=== PATIENT | male | born 1985 | race Caucasian/White ===

== ENCOUNTER 2017-03-09 16:56 | Emergency (ER) | payer OTHER ==
[2017-03-09 17:05] VITALS: BP 131/93
--- NOTE | 2017-03-09 17:46 | RADIOLOGY REPORT (SQ) ---
EXAM DESCRIPTION: HAND RIGHT 3 VIEWS COMPLETED DATE/TIME: 03/09/2017 5:32 pm REASON FOR STUDY: pain COMPARISON: None. EXAM PARAMETERS: NUMBER OF VIEWS: Three views. TECHNIQUE: AP, lateral and oblique radiographic images acquired of the right hand. LIMITATIONS: None. FINDINGS: MINERALIZATION: Normal. BONES: No acute fracture or dislocation. No worrisome bone lesions. JOINTS: No effusions. SOFT TISSUES: No soft tissue swelling. No foreign body. OTHER: No other significant finding. IMPRESSION: NEGATIVE STUDY OF THE RIGHT HAND. NO RADIOGRAPHIC EVIDENCE OF ACUTE INJURY. TECHNICAL DOCUMENTATION: JOB ID: [id number] [employer]- All Rights Reserved
--- NOTE | 2017-03-09 18:22 | RADIOLOGY REPORT (SQ) ---
EXAM DESCRIPTION: CHEST PA/LAT COMPLETED DATE/TIME: 03/09/2017 6:11 pm REASON FOR STUDY: right mid lateral chest tenderness COMPARISON: None. NUMBER OF VIEWS: One view. TECHNIQUE: Single frontal radiographic image of the chest acquired. LIMITATIONS: None. FINDINGS: LUNGS AND PLEURA: The lungs are clear and evenly aerated without focal consolidation. No pleural effusion or pneumothorax is demonstrated. MEDIASTINUM AND HILAR STRUCTURES: Normal contours. No masses. HEART AND VASCULAR STRUCTURES: Heart size is normal. Central vasculature appears normal. BONES: No acute findings. HARDWARE: None in the chest. OTHER: No other significant finding. IMPRESSION: No abnormalities are demonstrated in the region of the patient's reported pain (right ri bs 9 through 10). No acute findings. TECHNICAL DOCUMENTATION: JOB ID: [id number] [employer]- All Rights Reserved
--- NOTE | 2017-03-09 18:26 | ER Document Report ---
HPI - HPI Pain Level: 2 Context: 31 yo smoker male c/o persistent swelling and discomfort of his right 3rd ( middle) MCP joint after punching his grill 1 month ago. The pain radiates into right elbowand. This am he woke up with tenderness to right lateral chest wall. No sob, fever, cough. Wanted to make sure he didn't have cancer. Associated Symptoms: None Exacerbated by: Movement Similar symptoms previously: No Recently seen / treated by doctor: No - ROS ROS below otherwise negative: Yes Systems Reviewed and Negative: Yes All other systems reviewed and negative - DERM Skin Color: Normal Past Medical History - General Information source: Patient - Social History Smoking Status: Current Every Day Smoker Frequency of alcohol use: None Drug Abuse: None Lives with: Spouse/Significant other Family History: Malignancy - Medical History Medical History: Negative Renal/ Medical History: Denies: Hx Peritoneal Dialysis Surgical Hx: Negative Vertical Provider Document - CONSTITUTIONAL Agree With Documented VS: Yes Exam Limitations: No Limitations General Appearance: No Apparent Distress - INFECTION CONTROL TRAVEL OUTSIDE OF THE [place] IN LAST 30 DAYS: No - HEENT HEENT: Normocephalic - NECK Neck: Supple - RESPIRATORY Respiratory: Breath Sounds Normal, No Respiratory Distress O2 Sat by Pulse Oximetry: 98 Notes: point tender mid lateral right chest wall between ribs - CARDIOVASCULAR Cardiovascular: Regular Rate, Regular Rhythm - GI/ABDOMEN Gastrointestinal: Abdomen Soft, Abdomen Non-Tender - BACK Back: Normal Inspection - MUSCULOSKELETAL/EXTREMETIES Musculoskeletal/Extremeties: OLIVIA, FROM Notes: larger 3rd right MCP - NEURO Level of Consciousness: Awake, Alert Motor/Sensory: No Motor Deficit, No Sensory Deficit - DERM Integumentary: No Rash Course - Re-evaluation Re-evalutation: 03/09/17 18:22 5 the patient to try to quit smoking since he smokes a pack and a half per day since age 19. Hand x-ray is negative, chest x-ray is negative, will treat with antiinflammatory medication. Also gave him a referral to orthopedics for persistent hand pain 03/09/17 18:23 03/09/17 18:26 - Vital Signs Vital signs: Temp Pulse Resp BP Pulse Ox 98.5 F 98 16 131/93 H 98 03/09/17 17:02 03/09/17 17:02 03/09/17 17:02 03/09/17 17:02 03/09/17 17:02 Discharge - Discharge Clinical Impression: right lateral chest wall tenderness, right middle (3rd) MCP pain Disposition: HOME, SELF-CARE Instructions: Arthralgia ([facility]), Chest Wall Pain ([facility]), Contusion ([facility]), Family Physicians / Practices Additional Instructions: quit smoking as advised Return to the emergency room for any concerns or worsening symptoms Motrin on a regular basis as anti-inflammatory for this painful condition this week See primary care doctor if symptoms persist, list has been given to you Please complete the patient satisfaction survey if you get one, and return it.. If you do not receive a survey, then you can go to the [facility] website, [email or web address] and place your comments about your very good care. Thank you very much. It was a pleasure being your medical provider today. Prescriptions: Ibuprofen [Motrin 800 mg Tablet] 800 mg PO Q8HP PRN #30 tablet PRN Reason: Forms: Smoking Cessation Education Referrals: KARLEE GUTIERREZ MD [ACTIVE STAFF] - Follow up as needed
== END 2017-03-09 18:39 | disposition home or self-care (01) ==
LOC: ER 16:56
DX: R07.89 Other chest pain (principal); M79.89 Other specified soft tissue disorders; W22.8XXA Striking against or struck by other objects, initial encounter; F17.200 Nicotine dependence, unspecified, uncomplicated
CPT/HCPCS: 71020; 99283

== ENCOUNTER 2017-06-26 12:22 | Emergency (ER) | payer OTHER ==
[2017-06-26 13:07] VITALS: BP 125/79
--- NOTE | 2017-06-26 14:29 | ER Document Report ---
HPI - HPI Pain Level: 4 Notes: Patient is a 32-year-old male who presents ED complaining of a possible visit to the right superficial nostril 3 days. Patient states that is painful, and he has not tried to release the core. Patient states that his family members have MRSA, and is not sure if this is MRSA or not but wanted it evaluated. Patient has not noticed any obvious abscess or purulent discharge. Patient states that he has no pain on the inside of his nose. Patient states that the lesion has not been growing. Patient does notice pain when he pushes on it. No other concerns or complaints. Denies any headache, fever, head injury, neck pain, URI, sore throat, chest pain , palpitations, syncope, cough, shortness of breath, wheeze, dyspnea, abdominal pain, nausea/vomiting/diarrhea, urinary retention, dysuria, hematuria, loss of control of bowel or bladder, or rash. - ROS Systems Reviewed and Negative: Yes All other systems reviewed and negative Past Medical History - Social History Smoking Status: Never Smoker Family History: Malignancy Renal/ Medical History: Denies: Hx Peritoneal Dialysis - Immunizations Hx Diphtheria, Pertussis, Tetanus Vaccination: Yes Vertical Provider Document - CONSTITUTIONAL Agree With Documented VS: Yes Notes: PHYSICAL EXAMINATION: GENERAL: Well-appearing, well-nourished and in no acute distress. HEAD: Atraumatic, normocephalic. EYES: Pupils equal round and reactive to light, extraocular movements intact, sclera anicteric, conjunctiva are normal. ENT: EAC clear b/l. TM's intact b/l without erythema, fluid, or perforation. Nares patent and without discharge. oropharynx clear without exudates. No tonsilar hypertrophy or erythema. Moist mucous membranes. No sinus tenderness. NECK: Normal range of motion, supple without lymphadenopathy LUNGS: Breath sounds clear to auscultation bilaterally and equal. No wheezes rales or rhonchi. HEART: Regular rate and rhythm without murmurs, rubs, gallops. ABDOMEN: Soft, nontender, nondistended abdomen. No guarding, no rebound. No masses appreciated. Normal bowel sounds present. No CVA tenderness bilaterally. PSYCH: Normal mood, normal affect. SKIN: small erythemic (0.2mm) tender lesion on rt nostril. No abscess, streaks , or purulence. No swelling, erythema, or pain interior nostril. - INFECTION CONTROL TRAVEL OUTSIDE OF THE U.[place]. IN LAST 30 DAYS: No - RESPIRATORY O2 Sat by Pulse Oximetry: 98 Course - Re-evaluation Re-evalutation: 06/26/17 14:37 Patient is an afebrile, well-hydrated, 32-year-old male who presents the ED with a comedone to his right nostril. Vitals are stable. PE is otherwise unremarkable. No incision and drainage warranted at this time, nor do I believe that p.o. antibiotics are warranted at this time either. I will send him home with a prescription for mupirocin to use as directed. Patient has a allergy in the system for sulfa, but patient does not believe he is allergic to sulfa and has never had an angioedema reaction. Patient aware that if he starts developing any rash to wash off the mupirocin and take Benadryl. Patient to monitor symptoms for any acute changes and seek medical attention if so. Low suspicion for any acute systemic emergent condition at this time. Recheck with your PCM in 3-5 days. Consider consult dermatology. Return to the ED with any worsening/concerning symptoms otherwise as reviewed discharge. Patient is in agreement. - Vital Signs Vital signs: Temp Pulse Resp BP Pulse Ox 98.7 F 97 18 125/79 98 06/26/17 13:03 06/26/17 13:03 06/26/17 13:03 06/26/17 13:03 06/26/17 13:03 Discharge - Discharge Clinical Impression: [place] Condition: Stable Disposition: HOME, SELF-CARE Additional Instructions: Keep the skin clean Wash with soap and water Tylenol/ibuprofen if needed Triple antibiotic ointment daily Take medication as directed Monitor for any worsening symptoms Recheck with your PCM in 3-5 days Return to the ED with any worsening symptoms and/or development of fever, headache, chest pain, palpitations, syncope, shortness of breath, trouble breathing, abdominal pain, n/v/d, abscess, purulent discharge, red streaks, worsening swelling, or other worsening symptoms that are concerning to you. Prescriptions: Mupirocin 1 gm TP BID #1 bottle Referrals: ELBA LING DO [ACTIVE STAFF] - Follow up as needed
== END 2017-06-26 15:09 | disposition home or self-care (01) ==
LOC: ER 12:22
DX: L70.0 Acne vulgaris (principal)
CPT/HCPCS: 99282

== ENCOUNTER 2017-11-11 22:23 | Emergency (ER) | payer OTHER ==
[2017-11-11] MEDS ORDERED: LIDOCAINE 1% INJ-PF (10 MG/ML) 30 ML SDV INJ ONE (23:41)
--- NOTE | 2017-11-11 23:42 | ER Document Report ---
ED Medical Screen (RME) - General Chief Complaint: Laceration Stated Complaint: ARM LACERATION Time Seen by Provider: 11/11/17 23:41 Mode of Arrival: Ambulatory Information source: Patient Notes: Patient is a 32-year-old male who presents to the ER today for laceration to his left forearm just prior to arrival when he was emptying the did strain, tipping it so that the water would pour out and a brand-new very sharp knife fell on his forearm slicing it. Patient states he is up-to-date on his tetanus. Bleeding is controlled with bandaging. TRAVEL OUTSIDE OF THE [place] IN LAST 30 DAYS: No - Related Data Allergies/Adverse Reactions: azithromycin Allergy (Verified 06/26/17 12:31) Sulfa (Sulfonamide Antibiotics) Allergy (Verified 06/26/17 12:31) Past Medical History - General Information source: Patient Renal/ Medical History: Denies: Hx Peritoneal Dialysis - Immunizations Hx Diphtheria, Pertussis, Tetanus Vaccination: Yes Review of Systems - Review of Systems Skin: See HPI Physical Exam - Vital signs Vitals: Temp Pulse Resp BP Pulse Ox 97.9 F 92 15 131/83 H 97 11/11/17 23:04 11/11/17 23:04 11/11/17 23:04 11/11/17 23:04 11/11/17 23:04 - Notes Notes: PHYSICAL EXAMINATION: GENERAL: Well-appearing and in no acute distress. SKIN: Warm, Dry, normal turgor, large laceration to left forearm, minimal bleeding Course - Vital Signs Vital signs: Temp Pulse Resp BP Pulse Ox 97.9 F 92 15 131/83 H 97 11/11/17 23:04 11/11/17 23:04 11/11/17 23:04 11/11/17 23:04 11/11/17 23:04
[2017-11-12] MEDS ORDERED: TRAMADOL HCL 50 MG TABLET PO ONE (02:02)
[2017-11-12] MEDS ORDERED: DIPH/PERTUSS(ACELL)/TETANUS VAC/PF 0.5 ML SYR (>=10YO) IM ONE (02:02)
[2017-11-12] MEDS ORDERED: IBUPROFEN 600 MG TABLET PO ONE (02:02)
--- NOTE | 2017-11-12 02:02 | ER Document Report ---
ED General - General Chief Complaint: Laceration Stated Complaint: ARM LACERATION Time Seen by Provider: 11/11/17 23:41 Mode of Arrival: Ambulatory Notes: The patient is a 32-year-old male without chronic medical history who presents with a 4 cm laceration to his left forearm that he sustained after actually cutting himself with a knife. She states that he was reaching into the offset plate maker and the knife struck his arm. He states that he immediately developed a severe, stinging, burning pain to the area. Nothing improves or worsens that pain. The bleeding was controlled by direct pressure. No history of similar injuries in the past. He denies any additional injuries were sustained today. He has not seen his general doctor regarding today's concerns. He is uncertain of the date of his last tetanus immunization. TRAVEL OUTSIDE OF THE [place] IN LAST 30 DAYS: No - Related Data Allergies/Adverse Reactions: azithromycin Allergy (Verified 06/26/17 12:31) Sulfa (Sulfonamide Antibiotics) Allergy (Verified 06/26/17 12:31) Past Medical History - General Information source: Patient - Social History Smoking Status: Never Smoker Frequency of alcohol use: Social Drug Abuse: None Lives with: Spouse/Significant other Family History: Malignancy Patient has suicidal ideation: No Patient has homicidal ideation: No Renal/ Medical History: Denies: Hx Peritoneal Dialysis - Immunizations Hx Diphtheria, Pertussis, Tetanus Vaccination: Yes Review of Systems - Review of Systems Notes: Constitutional: Negative for fever. Eyes: Negative for visual changes. ENT: Negative for facial injury Cardiovascular: Negative for chest injury. Respiratory: Negative for shortness of breath. Gastrointestinal: Negative for abdominal injury. Genitourinary: Negative for genital injury Musculoskeletal: Negative for back injury. Skin: Positive for laceration/abrasions. Neurological: Negative for head injury. Physical Exam - Vital signs Vitals: Temp Pulse Resp BP Pulse Ox 97.9 F 92 15 131/83 H 97 11/11/17 23:04 11/11/17 23:04 11/11/17 23:04 11/11/17 23:04 11/11/17 23:04 Interpretation: Normal Notes: PHYSICAL EXAMINATION: GENERAL: Well-appearing, well-nourished and in no acute distress. HEAD: Atraumatic, normocephalic. EYES: sclera anicteric, conjunctiva are normal. ENT: Moist mucous membranes. NECK: Normal range of motion LUNGS: Normal work of breathing HEART: 2+ radial pulses bilaterally. Capillary refill less than 1 second in all digits of the left hand. EXTREMITIES: no pitting or edema. No cyanosis. NEUROLOGICAL: No focal neurological deficits. RMU motor distribution intact in the left hand against resistance. RMU sensory distribution intact. PSYCH: Normal mood, normal affect. SKIN: Warm, Dry, normal turgor, there is a 4 cm horizontal laceration to the distal left forearm with exposure of the subcutaneous fat and underlying muscle structures. Course - Re-evaluation Re-evalutation: 11/12/17 02:01 Patient presents with a 4 cm horizontal laceration across the left mid forearm. RMU motor and sensory distribution intact bilaterally. He is right-hand dominant. His tetanus has been updated. The wound was irrigated, sterilized, closed with a continuous running stitch. No complications. No evidence of foreign body on examination. At this time will discharge with return precautions and follow-up recommendations. Verbal discharge instructions given a the bedside and opportunity for questions given. Medication warnings reviewed. Patient is in agreement with this plan and has verbalized understanding of return precautions and the need for primary care follow-up in the next 24-72 hours. - Vital Signs Vital signs: Temp Pulse Resp BP Pulse Ox 97.9 F 86 14 126/87 H 97 11/11/17 23:04 11/12/17 02:34 11/12/17 02:34 11/12/17 02:34 11/12/17 02:34 Procedures - Laceration/Wound Repair Left Arm Wound length (cm): 4 Wound's Depth, Shape: Superficial Laceration pre-procedure: Sterile PPE donned Anesthetic type: 1% Lidocaine Volume Anesthetic (mLs): 2 Wound explored: Clean Irrigated w/ Saline (mLs): 500 Wound Debrided: Minimal Wound Repaired With: Sutures Suture Size/Type: 5:0, Ethilon Number of Sutures: 1 - Continuous running Layer Closure?: No Post-procedure wound care: Sterile dressing applied Post-procedure NV exam normal: Yes Complications: No Discharge - Discharge Clinical Impression: Laceration of left upper arm Qualifiers: Encounter type: initial encounter Qualified Code(s): S41.112A - Laceration without foreign body of left upper arm, initial encounter Condition: Good Disposition: HOME, SELF-CARE Additional Instructions: Please return to your primary doctor, the ED, or an urgent care in 7 days for suture removal. Return immediately if you develop spreading redness around the wound, pus from the wound, worsening pain, or a fever of >100.4. Keep the area clean and dry. Wash gently with soap and water twice daily and cover with antibiotic ointment.
[2017-11-12 02:35] VITALS: BP 126/87
== END 2017-11-12 02:36 | disposition home or self-care (01) ==
LOC: ER 22:23
DX: S51.812A Laceration without foreign body of left forearm, initial encounter (principal); W26.0XXA Contact with knife, initial encounter; Y93.89 Activity, other specified; Z23 Encounter for immunization; Z88.1 Allergy status to other antibiotic agents; Z88.2 Allergy status to sulfonamides
CPT/HCPCS: 99282; 90471; 90715; 12002; J3490

== ENCOUNTER 2018-12-05 09:34 | Day surgery (SDC) | payer OTHER ==
[~2018-12-05 09:34] MED LIST: PROPOFOL INJ 200 MG/20 ML VIAL IV ONE
--- NOTE | 2018-12-05 10:43 | Operative Report ---
Operative Report DATE OF SURGERY: 12/05/18 Operative Report: The risks benefits and alternatives of the procedure explained to the patient in detail and informed consent is obtained.A GIF Olympus video scope was inserted into the patient's mouth and hypopharynx, the esophagus is identified intubated and insufflated, the scope was then advanced through the esophagus stomach and duodenum ,retroflexion maneuver is done, the esophagus stomach and first and second portions of the duodenum examined. PREOPERATIVE DIAGNOSIS: Gastroesophageal reflux disease POSTOPERATIVE DIAGNOSIS: Mild esophagitis. Gastritis status post biopsy without Helicobacter pylori OPERATION: EGD with biopsy SURGEON: CORRIE MCGEE ANESTHESIA: LMAC TISSUE REMOVED OR ALTERED: As noted above. COMPLICATIONS: None. ESTIMATED BLOOD LOSS: None. INTRAOPERATIVE FINDINGS: As noted above. PROCEDURE: Patient tolerated the procedure well. No immediate postprocedure complications are noted. Patient is discharged in good condition. Discharge date 12/05/2018. Discharge diet: Regular. Discharge activity: Regular. 2 to 3-week follow-up to discuss findings. Patient is instructed to call the office or proceed to the emergency room should there be any further problems or questions. Wait on the pathology.
[2018-12-05 11:08] VITALS: BP 111/70
== END 2018-12-05 11:11 | disposition home or self-care (01) ==
LOC: END 09:34
PROVIDERS: ATTEND Internal Medicine Gastroenterology
DX: K21.0 Gastro-esophageal reflux disease with esophagitis (principal); K29.50 Unspecified chronic gastritis without bleeding; F17.210 Nicotine dependence, cigarettes, uncomplicated; I20.9 Angina pectoris, unspecified
CPT/HCPCS: 43239; 88305 ×2; 00731; J2704; 731

== ENCOUNTER → 2019-09-05 | Outpatient (CLI) | payer OTHER ==
[2019-09-05 12:44] VITALS: BP 131/68
--- NOTE | 2019-09-05 12:44 | ER RDC ASSESSMENT REPORT ---
Intake - In the Last 14 days Have you traveled outside [place]?: No Have you been in close contact with someone CONFIRMED: No Worked in Healthcare?: No - Symptoms Subjective Fever([place] feverish): Yes Chills: No Muscule Aches: Yes Runny Nose: Yes Sore Throat: Yes Cough (New or worsening chronic cough): Yes Shortness of breath: Yes Nausea or Vomiting: No Headache: Yes Abdominal Pain: Yes Diarrhea(3 or more loose stools in last 24 hours): No - Do you have any of the following Chronic lung disease: Asthma or emphysema or COPD: No Cystic Fibrosis: No Diabetes: No High Blood Pressure: No Cardiovascular Disease: No Chronic Kidney Disease: No Chronic Liver Disease: No Chronic blood disorder like Sickle Cell Disease: No Weak immune system due to disease or medication: No Neurologic condition that limits movement: No Developmental delay - Moderate to Severe: No Recent (within past 2 weeks) or current : No Morbid Obesity (>100 pounds over ideal weight): No - Objective Temperature: 97.7 F Pulse Rate: 79 Respiratory Rate: 18 Blood Pressure: 131/68 O2 Sat by Pulse Oximetry: 97 Objective: Patient is a well-appearing 34-year-old male who presents today for COVID-19 screening. Disposition: Home; Selfcare General - General Stated Complaint: Upper respiratory symptoms x7 days Mode of Arrival: Ambulatory Information source: Patient Notes: The patient was evaluated during the global COVID 19 pandemic, and that diagnosis was suspected/considered upon their initial presentation. Their evaluation, treatment, and testing was consistent with current guidelines for patients who present with complaints or symptoms that may be related to COVID 19. - HPI Patient complains to provider of: Upper respiratory symptoms Onset: Last week - 7 days Onset/Duration: Constant, Persistent Quality of pain: Achy Severity: Moderate Pain Level: 3 Context: Generalized body aches. Associated symptoms: Body/muscle aches, Nonproductive cough, Headache, Rhinnorhea, Shortness of breath, Sore throat Exacerbated by: Denies Relieved by: Denies Similar symptoms previously: No Recently seen / treated by doctor: No - Related Data Allergies/Adverse Reactions: azithromycin Allergy (Unknown, Verified 12/05/18 09:46) Sulfa (Sulfonamide Antibiotics) Allergy (Unknown, Verified 12/05/18 09:46) Past Medical History - Social History Smoking Status: Current Every Day Smoker Cigarette use (# per day): Yes - Reports he smokes 1 pack in 3 days Chew tobacco use (# tins/day): No Smoking Education Provided: Yes Frequency of alcohol use: Occasional Drug Abuse: None Occupation: [employer] employee Lives with: Family Family History: Malignancy Patient has suicidal ideation: No Patient has homicidal ideation: No - Past Medical History Cardiac Medical History: Denies: Hx Coronary Artery Disease, Hx Heart Attack, Hx Hypertension Pulmonary Medical History: Reports: Hx Asthma - A CHILD Denies: Hx Bronchitis, Hx COPD, Hx Pneumonia Neurological Medical History: Denies: Hx Cerebrovascular Accident, Hx Seizures Renal/ Medical History: Denies: Hx Peritoneal Dialysis Musculoskeletal Medical History: Reports Hx Arthritis Physical Exam - General General appearance: Appears well In distress: None Notes: PHYSICAL EXAMINATION: GENERAL: Well-appearing and in no acute distress. HEAD: Atraumatic, normocephalic. EYES: sclera anicteric, conjunctiva are normal. ENT: nares patent. Moist mucous membranes. NECK: Normal range of motion, supple without lymphadenopathy. LUNGS: CTAB and equal. No wheezes rales or rhonchi. HEART: Regular rate and rhythm without murmurs. EXTREMITIES: Normal range of motion, no pitting edema. No cyanosis. BACK: No midline or CVA tenderness. NEUROLOGICAL: Cranial nerves grossly intact. Normal speech. PSYCH: Normal mood, normal affect. SKIN: Warm, Dry, normal color and turgor, no obvious lesions or rash noted. Diagnostic Results Laboratory Results: Patient notified of NEGATIVE results on Rapid Flu (A & B) and Rapid Strep. Advised Throat Culture and COVID testing are PENDING, and they will be notified of any POSITIVE results at a later date/time. Patient Education/Counseling Counseling/Education: Patient presents with upper respiratory symptoms worrisome for possible Covid 19. Patient does not have emergency worring symptoms such as difficulty breathing, shortness of breath, chest pain, pressure, confusion or cyanosis. Patient appears suitable for discharge. Patient's vital signs are stable and patient is nontoxic in appearance. Good return precautions have been discussed with patient, patient verbalized understanding and is agreeable with discharge plan of care at this time. Patient provided COVID 19 discharge instructions to include: As a person under investigation for Covid 19, the [facility], division of public health advises you to adhere to the following guidance until your test results are reported to you. If your test result is positive, you will receive additional information from your provider and your local health department at that time. Remain at home until you are cleared by the health provider or public health authorities. Keep a log of visitors to your home, notify any visitors to your home of your isolation status. If you plan to move to a new address or leave the county, notify the local health department in your County. Call your doctor or seek care if you have an urgent medical need. Before seeking medical care, call ahead to get instructions from the provider before arriving at the medical office clinic or hospital. Notify them that you are being tested for the virus that causes Covid 19 so that arrangements can be made, as necessary, to prevent transmission to others in the healthcare setting. Next, notify the local health department in your county. If a medical emergency arises and you need to call 911, inform dispatch and the first responders that you are being tested for the virus that causes Covid 19. Next, notify the local health department in your county. Patient provided education on smoking cessation including the harmful effects of smoking, and the increased health benefits of quitting. Guidance for worsening S/SX: For worsening symptoms, patient has been advised to contact their Primary Care Provider, or go to the nearest Emergency Department. RDC Discharge - Discharge Clinical Impression: COVID-19 Screening URI (upper respiratory infection) Qualifiers: URI type: unspecified URI Qualified Code(s): J06.9 - Acute upper respiratory infection, unspecified Condition: Stable Disposition: Home; Selfcare
[2019-09-05 13:12] LABS: A TYPE INFLUENZA AG NEGATIVE (NEGATIVE); B INFLUENZA AG NEGATIVE (NEGATIVE)
== END ==
LOC: RDC 11:30
PROVIDERS: ATTEND Nurse Practitioner Family
DX: Z20.828 Contact with and (suspected) exposure to other viral communicable diseases (principal)
CPT/HCPCS: 87070; 87635; 87804; 87880